=== PATIENT | male | born 1950 | race Caucasian/White ===

== ENCOUNTER → 2024-08-21 | Outpatient (CLI) | payer MEDICARE ==
[~2024-08-21] MED LIST: barium sulfate 340gm for oral suspension 1 BOTTLE SUSP.RECON PO ONE
--- NOTE | 2024-08-22 11:33 | RADIOLOGY REPORT ---
Esophagram study: Dysphasia With the patient in upright and prone positions both thin and thick liquid barium was administered under direct fluoroscopic evaluation. Fluoroscopy time total 1.0 minutes fluoroscopy dose 38.8 mGy. There is a small sliding axial hiatal hernia demonstrated. There is no significant gastroesophageal reflux. Gastric and duodenal mucosal pattern appears unremarkable. The duodenal bulb distends well. IMPRESSION: Small reducible axial hiatal hernia with no significant gastroesophageal reflux. Otherwise unremarkable examination.
== END | disposition home or self-care (01) ==
LOC: RAD 11:36
PROVIDERS: ATTEND Internal Medicine Infectious Disease
DX: K44.9 Diaphragmatic hernia without obstruction or gangrene (principal); R13.14 Dysphagia, pharyngoesophageal phase
CPT/HCPCS: 74220